=== PATIENT | male | born 1990 | race Caucasian/White ===

== ENCOUNTER 2017-09-16 06:12 | Day surgery (SDC) | payer SELFPAY ==
--- NOTE | 2017-09-03 17:37 | HP ---
CC: Dr. Jaimes * PREOPERATIVE HISTORY AND PHYSICAL: DATE OF ADMISSION: Patient is scheduled for a same-day surgery admission by Dr. Banks on 09/16/17. DATE OF PREOPERATIVE HISTORY AND PHYSICAL EXAMINATION: 09/03/17. ATTENDING SURGEON: Dr. Josh Banks * (dictated by Li Morgan NP). CHIEF COMPLAINT: Bilateral groin hernias. HISTORY OF PRESENT ILLNESS: The patient is a 27-year-old male evaluated by Dr. Banks for bilateral inguinal hernias. The patient noted bulges in both groins, the right side greater than the left since around October or November of this year. 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 He was seen at a routine physical exam and was noted to have bilateral inguinal hernias and was sent for surgical evaluation. He has always been able to reduce the bulges and they spontaneously reduced when lying in the supine position. He will occasionally have some discomfort down into the right testicle, but no scrotal swelling. He denies any nausea or vomiting, dysuria or constipation. Dr. Banks examined the patient and notes obvious bulges in the right and left groin with the right being larger, extending somewhat down toward the scrotum; both inguinal hernias are easily reducible, mildly tender on the right. Dr. Banks has recommended laparoscopic repair of the bilateral inguinal hernias with mesh as a same-day surgery procedure and has discussed the nature of the surgery, the relevant risks and benefits and today I reviewed the postoperative care and recovery. The patient has had a chance to ask questions and stated that he understands the information and is satisfied with the answers given to his questions. He will sign surgical consent on the day of surgery. PAST MEDICAL HISTORY: Generally healthy, no acute or chronic conditions. PAST SURGICAL HISTORY: Limited to oral surgery for wisdom teeth. MEDICATIONS: None currently. ALLERGIES: No known drug allergies. FAMILY HISTORY: No known anesthesia complications, bleeding tendencies, or clotting disorders. SOCIAL HISTORY: He is , is a nonsmoker, rarely drinks alcohol. 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 REVIEW OF SYSTEMS: Constitutional: No fevers, chills, excessive fatigue, or weight loss. Endocrine: No diabetes or thyroid disease. Hematologic: No easy bruising or bleeding. No previous blood transfusions. Respiratory: No dyspnea on exertion. No chronic cough. Cardiovascular: No anginal chest pain or palpitations. Gastrointestinal: No nausea, vomiting, diarrhea, or constipation. No change in bowel habits. Genitourinary: No dysuria. No hematuria. Musculoskeletal: No complaints. Neurologic: No headache, blurred vision, areas of focal weakness or numbness. General: No previous anesthesia complications. No history of deep vein thrombosis or pulmonary embolism. No history of blood transfusions. PHYSICAL EXAMINATION GENERAL SURVEY: The patient is a 27-year-old male, well developed, well nourished, in no acute distress. VITAL SIGNS: Height 71 inches, weight 160 pounds, body mass index 22.3. Blood pressure 104/68, pulse 84 and regular, respiratory rate 16, temperature 97.6 tympanic. HEENT: Benign. NECK: Supple. No cervical lymphadenopathy. LUNGS: Breath sounds bilaterally clear and equal. HEART: Regular rate and rhythm. No murmurs or rubs appreciated. ABDOMEN: Active bowel sounds, flat, soft, nontender throughout. No obvious masses, organomegaly, or evidence of umbilical hernia. Inguinal exam is done by Dr. Banks revealed obvious bulges in the right and left groin, the right being larger, extending somewhat down toward the scrotum. Both inguinal hernias are easily reducible, mildly tender on the right. No femoral hernias. BACK: No CVA tenderness. GENITALIA: No testicular masses. RECTAL: Deferred. EXTREMITIES: Warm without edema or skin ulceration. NEUROLOGIC: Alert and oriented x3. Steady gait. SKIN: Warm, dry, and intact. IMPRESSION: Bilateral inguinal hernias. PLAN: Same-day surgery admission to Dr. Banks's service on Saturday, for laparoscopic repair of bilateral inguinal hernias with mesh. SILVANO MORGAN NP [id number]/[facility] #: [id number] [facility] MEDICAL CENTERAnnie
[~2017-09-16 06:12] MED LIST: Buffered Lidocaine 0.9% SYRIN* 5 ML/SYR SYRINGE INTRADERM ONE; Sodium Citrate/Citric Acid* 15 ML UDC PO ONE
[2017-09-16] MEDS ORDERED: Buffered Lidocaine 0.9% SYRIN* 5 ML/SYR SYRINGE ONE (06:13)
[2017-09-16] MEDS ORDERED: Sodium Citrate/Citric Acid* 15 ML UDC ONE (06:13)
[2017-09-16] MEDS ORDERED: ceFAZolin 2 GM PREMIX (*) 2 GM/50 ML BAG IVPB ONE (06:13)
[2017-09-16] MEDS ORDERED: Bupivacaine 0.25% SDV* 30 ML ONE (07:21)
[2017-09-16] MEDS ORDERED: Lidocaine 2% PF * 5 ML VIAL ONE (07:32)
[2017-09-16] MEDS ORDERED: Dexamethasone IV* 4 MG/ML 1 ML (4 MG) ONE (07:33)
[2017-09-16] MEDS ORDERED: Rocuronium* 10 MG/ML VIAL ONE (07:33)
[2017-09-16] MEDS ORDERED: Propofol* 10 MG/ML 20 ML BTL IV PUSH ONE (07:33)
[2017-09-16] MEDS ORDERED: Midazolam* 1 MG/ML 2 ML VIAL (2 MG) ONE (07:33)
[2017-09-16] MEDS ORDERED: Ketorolac INJ* 30 MG/ML 1 ML VIAL ONE (07:33)
[2017-09-16] MEDS ORDERED: fentaNYL* 50 MCG/ML 2 ML VIAL (100 MCG VIAL) ONE ×2 (07:33→10:28)
[2017-09-16] MEDS ORDERED: Ondansetron INJ* 2 MG/ML VIAL IV PRN (08:14)
[2017-09-16] MEDS ORDERED: fentaNYL* 50 MCG/ML 2 ML VIAL (100 MCG VIAL) IV PRN (08:14)
[2017-09-16] MEDS ORDERED: Glycopyrrolate IV* 0.2 MG/ML 1 ML VIAL ONE (09:57)
[2017-09-16] MEDS ORDERED: Neostigmine Methylsulfate* 2 MG/2 ML SYRINGE ONE (09:57)
[2017-09-16] MEDS ORDERED: oxyCODONE/Acetamin 5/325 MG* TAB PO PRN (10:13)
[2017-09-16] MEDS ORDERED: Ondansetron INJ* 2 MG/ML VIAL ONE (10:29)
[2017-09-16 11:46] VITALS: BP 121/81
--- NOTE | 2017-09-17 12:43 | OP ---
DATE OF OPERATION: 09/16/17 [facility] DATE OF : 88 SURGEON: Josh Banks MD TABBER: TANK Patel ANESTHESIOLOGIST: Dr. Goodwin. ANESTHESIA: General with local. PRE-OP DIAGNOSIS: Bilateral inguinal hernias. POST-OP DIAGNOSIS: Bilateral indirect inguinal hernias. OPERATIVE PROCEDURE: Total extraperitoneal laparoscopic repair of bilateral indirect inguinal hernias using a flat sheet ProGrip laparoscopic self-fixating mesh. ESTIMATED BLOOD LOSS: Minimal. IV FLUIDS: 1 L of crystalloid. SPECIMENS: None. WOUND CLASSIFICATION: I. COMPLICATIONS: None. BRIEF HISTORY: Mr. Heraclio Smith is a 27-year-old gentleman with bilateral inguinal hernias by physical exam, increasing in size, now to undergo an elective repair. DESCRIPTION OF PROCEDURE: Written informed consent was obtained, the both groins were marked with indelible ink and preoperative antibiotics were administered. The patient was taken to the operating room and placed in the supine position. Sequential compression devices and a warming blanket were applied. General anesthesia was administered. A Larkin catheter was inserted. The abdomen and both groins were prepped and draped in the usual sterile fashion. Time-out verification was completed. Initially, a small transverse incision was made just below the umbilicus and slightly off to the right and carried down to subcutaneous tissue and the rectus fascia at the midline and to the right was identified and scored horizontally. The rectus muscle at its medial border was identified and retracted laterally to expose the posterior sheath. The space was then developed using a Leila and then subsequently digitally and the Spacemaker balloon was then placed into the space and directed inferiorly and superficially down to the pubic tubercle with care. The 10-mm scope was then inserted and the Spacemaker balloon was inflated using the bulb inflator to about 20 squeezes to develop the preperitoneal space without difficulty. The balloon was then deflated and removed and a 12-mm blunt port was inserted into the extraperitoneal space and the space was insufflated to 12 mmHg. The patient was then placed in Trendelenburg position and two 5-mm ports were placed in the midline, each several fingerbreadths below the blunt port between the umbilicus and the pubis. Dissection initially commenced by identifying the pubic tubercle medially and the Bridger's ligament bilaterally without difficulty. There is some flimsy adventitial tissue, which was to identify this. Attention was then turned to the right side, which was a larger hernia. Here, I was able to identify the epigastric vessels in the usual correct position running up anteriorly in the abdominal wall. More laterally, the anterior abdominal wall was developed, sharp dissection to the adventitial tissue out to the iliac crest. The iliopubic line was also identified. At this point, once I identified the epigastric vessels and the abdominal wall, careful dissection was then commenced into the direct space. It appeared that there was no hernia in this area. There was a small indirect inguinal hernia with peritoneal reflection, which I identified more laterally and working medially, reduced this from the internal inguinal ring and brought posteriorly along the retroperitoneum and this was reflected off the spermatic cord and its structures. I identified the vas deferens and protected it from injury on this side as well. As mentioned, there was no evidence of direct hernia and the peritoneal reflection was identified medially as well as it extended down on the pelvis. Once this dissection was completed and I had reduced the indirect hernia sac, we proceeded to work on the left side. Likewise, Bridger's ligament along the left was cleaned of some adventitial tissue. The epigastric vessels were identified in the usual position running up anterior on the abdominal wall. The space laterally to the internal ring was developed with graspers and the anterior abdominal wall out to the iliac crest was developed. I was able to identify the peritoneal reflection laterally and I worked medially towards the internal ring and once again there was a small indirect inguinal hernia sac, which was reduced with some traction and sharper dissection. Care was made to identify the spermatic cord as well as the vas deferens and this was protected from injury throughout. There was no evidence of a direct space hernia on the left. Attention was then turned back to the right. We opened a ProGrip laparoscopic self- fixating mesh flat sheet design and wet this with saline. The medial aspect was trimmed at the corners and likewise the lateral aspect. It was folded into a cigar-type configuration and passed through the 12-mm blunt port into the extraperitoneal space. With care, we were able to open this up and placed this over the pubic tubercle, the conjoined tendon, and both indirect and indirect spaces on to the anterior abdominal wall as well as covering the retroperitoneum with care to prevent any of the peritoneal reflection from entering underneath the mesh itself. This covered well and with it self- fixating properties, no pantera were placed, no tacks were placed. Likewise, similar sized mesh was then placed into the left side and it was lined up along the Bridger's ligament and pubic tubercle medially and unrolled laterally to cover the direct and indirect space on to the anterior abdominal wall and was placed nicely with generous overlap of the internal ring with the self-fixating properties as well. No tacks were placed on this side. We then evaluated the mesh on both sides. Hemostasis was assured. There was generous overlap at the midline from both mesh. We then allowed the extraperitoneal space to desufflate holding the mesh to the anterior abdominal wall for postoperative optimal position. ll the ports were then removed. The anterior fascia was closed with interrupted 0 Polysorb suture. The skin at all 3 incisions was approximated with subcuticular 4-0 Polysorb suture. Steri- Strips were applied. The patient tolerated the procedure well and was taken to the recovery room in stable condition. [id number]/[facility] #: [id number] [place]
== END 2017-09-16 11:46 | disposition home or self-care (01) ==
LOC: OR 06:12
PROVIDERS: ATTEND Surgery
DX: K40.20 Bilateral inguinal hernia, without obstruction or gangrene, not specified as recurrent (principal)
CPT/HCPCS: A9270-GY; J0690; J1100; J1885; J2250; J2405; J2704; J3010

== ENCOUNTER 2017-12-11 10:06 | Emergency (ER) | payer SELFPAY | END 2017-12-11 10:59 | disposition left against medical advice (07) | LOC: UCCORT 10:06 | DX: R09.81 Nasal congestion (principal); Z53.21 Procedure and treatment not carried out due to patient leaving prior to being seen by health care provider ==

== ENCOUNTER 2017-12-11 12:50 | Emergency (ER) | payer SELFPAY | END 2017-12-11 15:09 | disposition left against medical advice (07) | LOC: UCCORT 12:50 | DX: R09.81 Nasal congestion (principal); Z53.21 Procedure and treatment not carried out due to patient leaving prior to being seen by health care provider ==

== ENCOUNTER 2018-04-14 10:50 | Emergency (ER) | payer SELFPAY ==
[2018-04-14 12:07] VITALS: BP 116/58
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
--- NOTE | 2018-04-14 13:00 | RAD ---
HISTORY: injury, right knee pain COMPARISONS: None VIEWS: 4, Frontal, lateral, axial, and oblique views of the right knee FINDINGS: BONE DENSITY: Normal. BONES: There is no displaced fracture. JOINTS: There is no arthropathy. There is no suprapatellar joint effusion or lipohemarthrosis. ALIGNMENT: There is no dislocation. SOFT TISSUES: Unremarkable. OTHER FINDINGS: None. IMPRESSION: NO ACUTE OSSEOUS INJURY. IF SYMPTOMS PERSIST, RECOMMEND REPEAT IMAGING.
--- NOTE | 2018-04-14 13:02 | RAD ---
HISTORY: injury, left leg pain COMPARISONS: None VIEWS: 2, Frontal and lateral views of the left foreleg FINDINGS: BONE DENSITY: Normal. BONES: There is no displaced fracture. JOINTS: There is no arthropathy. ALIGNMENT: There is no dislocation. SOFT TISSUES: Unremarkable. OTHER FINDINGS: None. IMPRESSION: NO ACUTE OSSEOUS INJURY. IF SYMPTOMS PERSIST, RECOMMEND REPEAT IMAGING.
--- NOTE | 2018-04-14 13:18 | RAD ---
Indication: Left index finger injury. 3 views of left index finger demonstrates soft tissue swelling at the proximal interphalangeal joint. There is suggestion of a tiny defect in the volar plate of the proximal end of the middle phalanx for which a volar plate fracture cannot BE excluded. IMPRESSION: Question volar plate fracture middle phalanx index finger.
== END 2018-04-14 13:50 | disposition home or self-care (01) ==
LOC: UCCORT 10:50
DX: S62.613A Displaced fracture of proximal phalanx of left middle finger, initial encounter for closed fracture (principal); M25.561 Pain in right knee; S80.12XA Contusion of left lower leg, initial encounter; V86.56XA Driver of dirt bike or motor/cross bike injured in nontraffic accident, initial encounter; Y93.89 Activity, other specified; Y92.39 Other specified sports and athletic area as the place of occurrence of the external cause
CPT/HCPCS: 73140; 99213; G0463

== ENCOUNTER 2018-07-19 15:20 | Emergency (ER) | payer SELFPAY ==
[2018-07-19 16:36] VITALS: BP 111/70
--- NOTE | 2018-07-19 16:57 | UC ---
Respiratory Complaint HPI - HPI Summary HPI Summary: C/O sinus pain for 2 1/2 weeks. Started z-medardo. Not better. This morning starting to have blood from the post nasal drip. - History of Current Complaint Chief Complaint: UCRespiratory Stated Complaint: SINUS PRESSURE Time Seen by Provider: 07/19/18 16:48 Hx Obtained From: Patient Onset/Duration: Gradual Onset, Lasting Weeks - 2 1/2, Worse Since - the last week. Timing: Constant Severity Initially: Mild Severity Currently: Moderate Pain Intensity: 6 Character: Cough: Nonproductive - rare. Now just bringing up post nasal blood. Alleviating Factors: Nothing Associated Signs And Symptoms: Positive: Nasal Congestion, Sinus Discomfort. Negative: Pleuritic Chest Pain, Wheezing Related History: Seasonal Allergies - Allergies/Home Medications Allergies/Adverse Reactions: Allergies Allergy/AdvReac Type Severity Reaction Status Date / Time No Known Allergies Allergy Verified 07/19/18 16:36 PMH/Surg Hx/FS Hx/Imm Hx Previously Healthy: Yes - Surgical History Surgical History: Yes Surgery Procedure, Year, and Place: WISDOM TOOTH. hernia - Family History Known Family History: Positive: Hypertension, Diabetes - Social History Occupation: Employed Full-time Lives: With Family Alcohol Use: Daily Alcohol Amount: beer1-2 Substance Use Type: Marijuana Substance Use Comment - Amount & Last Used: daily- last used last night. Smoking Status (MU): Never Smoked Tobacco Type: Smokeless Tobacco Review of Systems Constitutional: Chills, Fatigue ENT: Nasal Discharge, Sinus Congestion, Sinus Pain/Tenderness Respiratory: Cough Is Patient Immunocompromised?: No All Other Systems Reviewed And Are Negative: Yes Physical Exam Triage Information Reviewed: Yes Appearance: No Pain Distress, Well-Nourished, Ill-Appearing Vital Signs: Initial Vital Signs Temp 98.5 F 07/19/18 16:32 Pulse 72 07/19/18 16:32 Resp 16 07/19/18 16:32 BP 111/70 07/19/18 16:32 Pulse Ox 98 07/19/18 16:32 Vital Signs Reviewed: Yes Eyes: Positive: Conjunctiva Inflamed ENT: Positive: Pharynx normal, Nasal congestion - with allergic changes, TMs normal Neck exam: Normal Respiratory: Positive: Lungs clear, Wheezing - faint end expiratory wheeze with coughing. Cardiovascular Exam: Normal Musculoskeletal Exam: Normal Neurological Exam: Normal Psychological Exam: Normal Skin Exam: Normal UC Diagnostic Evaluation - Laboratory O2 Sat by Pulse Oximetry: 98 Respiratory Course/Dx - Differential Dx/Diagnosis Differential Diagnosis/HQI/PQRI: Asthma, Bronchitis, Laryngitis, Sinusitis Provider Diagnoses: Allergic rhinitis. Acute sinusitis Discharge - Sign-Out/Discharge Documenting (check all that apply): Patient Departure All imaging exams completed and their final reports reviewed: No Studies - Discharge Plan Condition: Stable Disposition: HOME Prescriptions: Amoxicillin PO (*) [Amoxicillin 875 MG (*)] 875 mg PO BID #20 tab Fluticasone NASAL SPRAY 50MCG* [Flonase NASAL SPRAY 50MCG*] 2 spray BOTH NARES DAILY #1 btl Montelukast Sodium 10 mg PO BEDTIME #30 tablet Patient Education Materials: Montelukast (By mouth), Allergic Rhinitis (ED), Sinusitis (ED), Amoxicillin (By mouth) Referrals: No Primary Care Phys,NOPCP [Primary Care Provider] - Additional Instructions: NEILMED SINUS RINSE: CHECK OUT AT [facility] Saline nasal wash helps with mucous, allergies and congestion. It can be used up to twice a day or only as needed. Use lukewarm tap water. It does not have to be sterilized or distilled water. Do 1/3 on each side and snort out of both nostrils. Repeat the process with 1/6 of the bottle on each side with snorting in between to finish the solution in the bottle - Billing Disposition and Condition Condition: STABLE Disposition: Home
== END 2018-07-19 17:13 | disposition home or self-care (01) ==
LOC: UCCORT 15:20
DX: J30.9 Allergic rhinitis, unspecified (principal); J01.90 Acute sinusitis, unspecified; F12.90 Cannabis use, unspecified, uncomplicated; Z72.89 Other problems related to lifestyle; Z72.0 Tobacco use
CPT/HCPCS: 99212; G0463

== ENCOUNTER 2018-12-15 15:17 | Emergency (ER) | payer SELFPAY | END 2018-12-15 16:28 | disposition left against medical advice (07) | LOC: UCCORT 15:17 | DX: Z53.21 Procedure and treatment not carried out due to patient leaving prior to being seen by health care provider (principal) ==